=== PATIENT | female | born 1955 | race Hispanic/Latino ===

== ENCOUNTER 2020-05-21 21:29 | Emergency (ER) | payer BC ==
[~2020-05-21] VITALS: Ht 157.5 cm; Wt 102.1 kg
[2020-05-21 23:26] VITALS: BP 132/85
== END 2020-05-21 23:40 | disposition home or self-care (01) ==
LOC: ER 22:06
DX: S20.211A Contusion of right front wall of thorax, initial encounter (principal); V43.52XA Car driver injured in collision with other type car in traffic accident, initial encounter; Y92.488 Other paved roadways as the place of occurrence of the external cause; E11.9 Type 2 diabetes mellitus without complications
CPT/HCPCS: 71101; 99284